=== PATIENT | male | born 1955 | race Caucasian/White ===

== ENCOUNTER 2017-04-03 12:38 | Inpatient (IN) | payer OTHER ==
[~2017-04-03] VITALS: Ht 188 cm; Wt 88.0 kg
[~2017-04-03 12:38] MED LIST: IBUP-232 PO
[2017-04-03 12:40] VITALS: BP 135/86; PULSE 98; RESP 20; TEMP 98; O2SAT 97
--- NOTE | 2017-04-03 13:02 | PD ---
Physical Exam Time Seen by Provider: 13:00 Narrative 61yo M c/o left leg cat bite since Monday w/ red streaking up his leg. [facility] and to come to ER. +vomiting yesterday. Denies fever. Patient seen in triage. Awaiting bed placement. VS reviewed. Data Data Last Documented VS Vital Signs Date Time Temp Pulse Resp B/P Pulse Ox O2 Delivery O2 Flow Rate FiO2 04/03/17 12:40 98.0 98 20 135/86 97 Room Air MDM Supervised Visit with SENDY: Anny Diaz Apr 03, 2017 13:02
[2017-04-03] MEDS ORDERED: GUAI400T8 PO (17:16)
[2017-04-03] MEDS ORDERED: NICO1PAT TD (17:16)
[2017-04-03] MEDS ORDERED: IPRAAER INH (17:16)
[2017-04-03] MEDS ORDERED: B-1250TA PO (17:16)
[2017-04-03] MEDS ORDERED: LEVE750T8 PO (17:16)
[2017-04-03] MEDS ORDERED: [UNRECOGNIZED DRUG - CODE] PO (17:16)
[2017-04-03] MEDS ORDERED: SODIUM CHLORIDE 0.9% FLUSH 10 ML FLUSH IVF PRN (17:45)
[2017-04-03] MEDS ORDERED: metroNIDAZOLE 500 MG INJ 100 ML IV ONE (17:45)
[2017-04-03] MEDS ORDERED: CIPROFLOXACIN 400 MG PREMIX 200 ML IV ONE (17:45)
--- NOTE | 2017-04-03 17:46 | PD ---
HPI Chief Complaint: Skin Problem Time Seen by Provider: 17:23 Travel History International Travel<30 days: No Contact w/Intl Traveler<30days: No Traveled to known affect area: No History of Present Illness HPI Patient is a 61-year-old male who presents to emergency room for evaluation of cellulitis. Reports that he was bitten by his cat on Monday on his left lower extremity, he has noticed increased redness to his left leg, reports that the redness goes up to his left groin. He denies any fevers, reports chills. Reports that he did go to the [place] today, was told to go to the emergency room for IV antibiotics and admission to the hospital for treatment of cellulitis due to cat bite. Patient reports that his tetanus is up-to-date, last tetanus was 2 years ago. PFSH Past Medical History Arthritis: Yes Blood Disorders: No Cancer: Yes (melanoma of the left ear/NOSE,FACE) Chemotherapy: No Diabetes: No Endocrine: No Glaucoma: No Headaches: Yes Hepatitis: Yes (c) Hiatal Hernia: No Hypertension: No Immune Disorder: No Psychiatric: No Radiation Therapy: No Sleep Apnea: Yes Thyroid Disease: No Past Surgical History Abdominal Surgery: Yes (appendectomy,) AICD: No Appendectomy: Yes Arteriovenous Shunt: No Ear Surgery: Yes Insulin Pump: No Joint Replacement: No Pacemaker: No Other Surgery: Yes (APPENDICITIS, LEFT SHOULDER, RECONSTRUCTED WRIST FUSED) Social History Alcohol Use: Yes Tobacco Use: Yes Substance Use: No Allergies-Medications (Allergen,Severity, Reaction): Coded Allergies: Penicillin (Verified Allergy, Severe, Hives, 04/03/17) Reported Meds & Prescriptions Reported Meds & Active Scripts Active Reported B-1 (Thiamine HCl) 250 Mg Tab 100 Mg PO DAILY Nicotine Patch (Nicotine) 1 Each Patch.td24 21 Mg TD DAILY Levetiracetam 750 Mg Tab 750 Mg PO BID Guaifenesin 400 Mg Tab 400 Mg PO BID B-12 (Cyanocobalamin (Vitamin B-12)) 1,000 Mcg Tablet 1 Tab PO DAILY Combivent Respimat Inh (Ipratropium-Albuterol Inh) 20-100 Mcfp/Act Aero 1 Puff INH BID Review of Systems General / Constitutional: No: Fever Eyes: No: Visual changes HENT: No: Headaches Cardiovascular: No: Chest Pain or Discomfort Respiratory: No: Shortness of Breath Gastrointestinal: No: Abdominal Pain Genitourinary: No: Dysuria Musculoskeletal: No: Pain Skin: Positive Other (cellulitis of left lower extremity), No Rash Neurologic: No: Weakness Psychiatric: No: Depression Endocrine: No: Polydipsia Hematologic/Lymphatic: No: Easy Bruising Physical Exam Narrative GENERAL: mild distress SKIN: Focused skin assessment warm/dry. patient with erythema and swelling from left ankle with streaking to left groin HEAD: Atraumatic. Normocephalic. EYES: Pupils equal and round. No scleral icterus. No injection or drainage. ENT: No nasal bleeding or discharge. Mucous membranes pink and moist. NECK: Trachea midline. No JVD. CARDIOVASCULAR: Regular rate and rhythm. No murmur appreciated. RESPIRATORY: No accessory muscle use. Clear to auscultation. Breath sounds equal bilaterally. GASTROINTESTINAL: Abdomen soft, non-tender, nondistended. Hepatic and splenic margins not palpable. MUSCULOSKELETAL: No obvious deformities. No clubbing. No cyanosis. No edema. NEUROLOGICAL: Awake and alert. No obvious cranial nerve deficits. Motor grossly within normal limits. Normal speech. PSYCHIATRIC: Appropriate mood and affect; insight and judgment normal. Data Data Last Documented VS Vital Signs Date Time Temp Pulse Resp B/P Pulse Ox O2 Delivery O2 Flow Rate FiO2 04/03/17 17:59 82 16 147/93 97 Room Air 04/03/17 12:40 98.0 Orders Basic Metabolic Panel (Bmp) (04/03/17 17:35) Complete Blood Count With Diff (04/03/17 17:35) Prothrombin Time / Inr (Pt) (04/03/17 17:35) Act Partial Throm Time (Ptt) (04/03/17 17:35) Iv Access Insert/Monitor (04/03/17 17:35) Sodium Chloride 0.9% Flush (Ns Flush) (04/03/17 17:45) Ciprofloxacin 400 Mg Premix (Cipro 400 M (04/03/17 17:45) Metronidazole 500 Mg Inj (Flagyl 500 Mg (04/03/17 17:45) Admit Order (Ed Use Only) (04/03/17 18:40) Labs Laboratory Tests Test 04/03/17 17:55 White Blood Count 12.7 TH/MM3 Red Blood Count 4.12 MIL/MM3 Hemoglobin 13.6 GM/DL Hematocrit 39.9 % Mean Corpuscular Volume 96.8 FL Mean Corpuscular Hemoglobin 33.1 PG Mean Corpuscular Hemoglobin 34.2 % Concent Red Cell Distribution Width 13.4 % Platelet Count 209 TH/MM3 Mean Platelet Volume 7.3 FL Neutrophils (%) (Auto) % Lymphocytes (%) (Auto) % Monocytes (%) (Auto) % Eosinophils (%) (Auto) % Basophils (%) (Auto) % Neutrophils # (Auto) TH/MM3 Lymphocytes # (Auto) TH/MM3 Monocytes # (Auto) TH/MM3 Eosinophils # (Auto) TH/MM3 Basophils # (Auto) TH/MM3 CBC Comment AUTO DIFF Hematology Comments Prothrombin Time 12.7 SEC Prothromb Time International 1.1 RATIO Ratio Activated Partial 29.8 SEC Thromboplast Time Sodium Level 132 MEQ/L Potassium Level 4.4 MEQ/L Chloride Level 97 MEQ/L Carbon Dioxide Level 26.5 MEQ/L Anion Gap 9 MEQ/L Blood Urea Nitrogen 6 MG/DL Creatinine 0.77 MG/DL Estimat Glomerular Filtration 102 ML/MIN Rate Random Glucose 82 MG/DL Calcium Level 9.2 MG/DL [facility] Medical Decision Making Medical Screen Exam Complete: Yes Emergency Medical Condition: Yes Interpretation(s) Vital Signs Date Time Temp Pulse Resp B/P Pulse Ox O2 Delivery O2 Flow Rate FiO2 04/03/17 17:59 82 16 147/93 97 Room Air 04/03/17 12:40 98.0 98 20 135/86 97 Room Air Differential Diagnosis Cellulitis due to cat bite Narrative Course 61-year-old male who presents to emergency room with complaints of cellulitis from cat. Patient reports that he was bit by his cat on Monday, reports that he noticed increased redness to his left lower extremity which has now progressed to redness up his leg and to his groin. Reports no fevers, c/o of chills. [facility]. Patient does have an allergy to penicillin, reports that he develops a rash and that his throat closes up on him. Patient given flagyl and cipro. tetanus is up to date case reviewed with dr. casey who accepts pt to service Diagnosis Primary Impression: Cellulitis Qualified Code: L03.116 - Cellulitis of left lower extremity Additional Impression: Cat bite Qualified Code: W55.01XA - Cat bite, initial encounter Admitting Information Admitting Physician Requests: Observation Phyllis Peter DO Apr 03, 2017 17:46
[2017-04-03 17:59] VITALS: BP 147/93; PULSE 82; RESP 16; O2SAT 97
[2017-04-03 18:05] LABS: HEMATOCRIT 39.9 % (39.0-51.0); MEAN CELL VOLUME 96.8 FL (80.0-100.0); MEAN CORPUSCULAR HEMOGLOBIN 33.1 PG (27.0-34.0); MEAN CORPUSCULAR HGB CONC 34.2 % (32.0-36.0); PLATELET COUNT 209 TH/MM3 (150-450); RED BLOOD COUNT 4.12 MIL/MM3 (4.50-5.90); RED CELL DISTRIBUTION WIDTH 13.4 % (11.6-17.2); WHITE BLOOD COUNT 12.7 TH/MM3 (4.0-11.0)
[2017-04-03 18:10] LABS: APTT (PATIENT) 29.8 SEC (24.3-30.1); INTERNATIONAL NORMALIZED RATIO 1.1 RATIO; PROTHROMBIN TIME - PATIENT 12.7 SEC (9.8-11.6)
[2017-04-03 18:15] LABS: HEMO FLAGS AUTO DIFF
[2017-04-03 18:36] LABS: BICARBONATE 26.5 MEQ/L (21.0-32.0); POTASSIUM 4.4 MEQ/L (3.5-5.1)
[2017-04-03] MEDS: SODIUM CHLOR 0.9% 1000 ML INJ 1,000 ML IV SCH (18:41)
[2017-04-03 18:57] LABS: BANDS 8 % (0-6); EOSINOPHILS 1 % (0-4); NEUTROPHIL # MANUAL DIFF 10.5 TH/MM3 (1.8-7.7); PLATELET ESTIMATE SMEAR NORMAL (NORMAL); PLATELET MORPHOLOGY NORMAL (NORMAL); POLYS (SEG NEUTROPHILS) 75 % (16-70); SCAN/DIFF FINAL DIFF MANUAL; WBC DIFF SAMPLE 100
[2017-04-03] MEDS: SODIUM CHLORIDE 0.9% FLUSH 10 ML FLUSH IV FLUSH SCH (20:10)
[2017-04-03] MEDS: levETIRAcetam 250 MG TAB PO SCH (21:00)
--- NOTE | 2017-04-03 23:59 | HHI.HP ---
[facility] Admission Diagnosis cellulitis - cat bite Diagnoses: Chief Complaint: cat scratch Travel History International Travel<30 Days: No Contact w/Intl Traveler <30 Da: No Traveled to Known Affected Are: No History of Present Illness History from patient, ER provider communication, and review of medical records. Patient reported that on Monday, he was turning around and accidentally stepped on his cats detail and the cat turned around and scratched him by accidents. He does not think that the cat bit him. He states his is claiming that the cat might have. He states this Is his home cat and is immunized for all the vaccinations including rabies, and feline leukemia exotropia. He denies any fever. He states he was having some mild pain in that leg and nothing was noticeable. However on Monday, yesterday morning, he woke up with some redness, swelling and streaking up his left lower extremity. He states he was not given any antibiotics as an outpatient. He went to his [place] doctor who sent him to the hospital. On review of systems, he did report of some nausea on Monday and some diarrhea on Monday. But it's spontaneously resolved. He also reports of shortness of breath but states that this has been going on for a long time because of his COPD. Nothing different from his baseline. Otherwise, he denies any recent fevers/nausea/vomiting/diarrhea/urinary burning or pain on urination. Denies any hematemesis/hematochezia/melena/hematuria. Review of Systems Except as stated in HPI: all other systems reviewed are Neg Past Family Social History Past Medical History copd hepatitis c - 15yrs ago, with interferon 11 months seizures- on meds - keppra- but then stated due to alcohol withdrawal seizures as well Past Surgical History left shoulder reconstruction nerve replacement brachial plexus sx in left shoulder appendectomy left wrist sx- wrist drop sx liver biopsy Allergies: Coded Allergies: Penicillin (Verified Allergy, Severe, Hives, 04/03/17) Family History mom at 81 yo - from severe depression dad at 81 yo from heart attack Social History drinks heavily, last drink was monday- 3 beers normally 10-12 beers a day smokes , but stated last day is today. a pack a day years ago, used to use cocaine Physical Exam Vital Signs Vital Signs Date Time Temp Pulse Resp B/P Pulse Ox O2 Delivery O2 Flow Rate FiO2 04/03/17 17:59 82 16 147/93 97 Room Air 04/03/17 12:40 98.0 98 20 135/86 97 Room Air Physical Exam GENERAL: This is a well-nourished, well-developed patient, in no apparent distress. SKIN: Left lower extremity erythema and cellulitis with streaking up to upper thighs HEAD: Atraumatic. Normocephalic. No temporal or scalp tenderness. EYES: No scleral icterus. No injection or drainage. ENT: Nose without bleeding, purulent drainage or septal hematoma. Airway patent. NECK: Trachea midline. No JVD CARDIOVASCULAR: Regular rate and rhythm without murmurs, gallops, or rubs. RESPIRATORY: Clear to auscultation. Breath sounds equal bilaterally. No wheezes , rales, or rhonchi. GASTROINTESTINAL: Abdomen soft, non-tender, nondistended.No guarding. MUSCULOSKELETAL: Extremities without clubbing, cyanosis, or edema.No calf tenderness. NEUROLOGICAL: Awake and alert.Motor and sensory grossly within normal limits Normal speech. Laboratory Laboratory Tests Test 04/03/17 17:55 White Blood Count 12.7 Red Blood Count 4.12 Hemoglobin 13.6 Hematocrit 39.9 Mean Corpuscular Volume 96.8 Mean Corpuscular Hemoglobin 33.1 Mean Corpuscular Hemoglobin 34.2 Concent Red Cell Distribution Width 13.4 Platelet Count 209 Mean Platelet Volume 7.3 Neutrophils (%) (Auto) Lymphocytes (%) (Auto) Monocytes (%) (Auto) Eosinophils (%) (Auto) Basophils (%) (Auto) Neutrophils # (Auto) Lymphocytes # (Auto) Monocytes # (Auto) Eosinophils # (Auto) Basophils # (Auto) CBC Comment AUTO DIFF Differential Total Cells 100 Counted Neutrophils % (Manual) 75 Band Neutrophils % 8 Lymphocytes % 12 Monocytes % 4 Eosinophils % 1 Neutrophils # (Manual) 10.5 Differential Comment FINAL DIFF MANUAL Platelet Estimate NORMAL Platelet Morphology Comment NORMAL Red Cell Morphology Comment NORMAL Hematology Comments Prothrombin Time 12.7 Prothromb Time International 1.1 Ratio Activated Partial 29.8 Thromboplast Time Sodium Level 132 Potassium Level 4.4 Chloride Level 97 Carbon Dioxide Level 26.5 Anion Gap 9 Blood Urea Nitrogen 6 Creatinine 0.77 Estimat Glomerular Filtration 102 Rate Random Glucose 82 Calcium Level 9.2 Result Diagram: 04/03/17175404/03/171754 Assessment and Plan Assessment and Plan Impression: Left lower extremity cellulitisfrom cat scratch copd hepatitis c - 15yrs ago, with interferon 11 months seizures- on meds - kera- but then stated due to alcohol withdrawal seizures as well Plan: Continue ciprofloxacin 400 mg IV every 12 hours. Flagyl 500 mg IV every 6 hours. Will monitor patient for clinically for improvement. Watch for alcohol withdrawal. CIWA protocol. Nebs when necessary for COPD. Resume home meds. DVT prophylaxiswith Lovenox. Discussed Condition With Patient, nursing staff Shayne Beckwith MD Apr 03, 2017 23:59
[2017-04-04] VITALS (7 sets, daily range): BP systolic 107–148; BP diastolic 73–88; PULSE 79–105; RESP 16–21; TEMP 96.3–100; O2SAT 95–99
[2017-04-04] MEDS ORDERED: RESP: ALBUTEROL 2.5 MG/IPRATROPIUM 0.5 MG NEB (PRN) NEB
[2017-04-04] MEDS ORDERED: LORazepam 1 MG TAB PO PRN ×2 (00:15→11:30)
[2017-04-04] MEDS ORDERED: LORazepam 2 MG TAB PO PRN ×2 (00:15→11:30)
[2017-04-04] MEDS ORDERED: LORazepam 2 MG/ML VIAL IV PUSH PRN ×8 (00:15→11:30)
[2017-04-04] MEDS ORDERED: FLUMAZENIL 0.5 MG/5 ML VIAL IV PUSH PRN ×2 (00:15→11:30)
[2017-04-04] MEDS: RESP: ALBUTEROL 2.5 MG/IPRATROPIUM 0.5 MG NEB (SCH) NEB ×2 (03:49→07:34)
[2017-04-04] MEDS: metroNIDAZOLE 500 MG INJ 100 ML IV SCH ×3 (04:06→21:25)
[2017-04-04] MEDS: SODIUM CHLOR 0.9% 1000 ML INJ 1,000 ML IV SCH ×2 (04:41→17:01)
[2017-04-04] MEDS: CIPROFLOXACIN 400 MG PREMIX 200 ML IV SCH ×2 (05:05→16:59)
[2017-04-04] MEDS: CYANOCOBALAMIN 1,000 MCG TAB PO SCH (08:15)
[2017-04-04] MEDS ORDERED: KETOROLAC TROMETHAMINE 30 MG/ML (IVP) VIAL IV PUSH PRN (08:15)
[2017-04-04] MEDS: NICOTINE 21 MG/24 HR PATCH T-DERMAL SCH (08:16)
[2017-04-04] MEDS: levETIRAcetam 250 MG TAB PO SCH ×2 (08:16→21:24)
[2017-04-04] MEDS: THIAMINE HCL 100 MG TAB PO SCH (08:16)
[2017-04-04] MEDS: ENOXAPARIN SODIUM 40 MG/0.4 ML SYRINGE SQ SCH (08:17)
[2017-04-04] MEDS: SODIUM CHLORIDE 0.9% FLUSH 10 ML FLUSH IV FLUSH SCH ×2 (08:18→21:23)
--- NOTE | 2017-04-04 08:28 | HHI.PR ---
Subjective Remarks Follow-up for left lower extremity cellulitis. Patient continues to complain of left lower extremity redness or his Possibly scratched or bitten him, he is not sure. He continues to have red streaking up his leg and swollen lymph nodes in his groin, but feels like the lymphangitic redness is a little bit improved and his antibiotics were started. He has some occasional burning pain in his left leg. His PCP has instructed him to taper off of 12 beers daily due to alcohol withdrawal seizures, currently at 10 daily. He takes ibuprofen for left shoulder pain. He is trying to stop smoking and requests a nicotine patch. Objective Vitals Vital Signs Date Time Temp Pulse Resp B/P Pulse Ox O2 Delivery O2 Flow Rate FiO2 04/04/17 07:30 98.0 79 16 108/75 97 04/04/17 04:53 98.8 96 18 107/73 95 04/04/17 00:00 100.0 105 20 148/82 95 04/03/17 17:59 82 16 147/93 97 Room Air 04/03/17 12:40 98.0 98 20 135/86 97 Room Air Result Diagram: 04/03/17175404/03/171754 Objective Remarks GENERAL: Well-developed well-nourished. In no acute distress. SKIN: Warm and dry. Left lower extremity as below with healing scratch and possible puncture wound. HEENT: Normocephalic. Pupils equal and round. Mucous membranes pink and moist. CARDIOVASCULAR: Regular rate and rhythm. No murmur appreciated. RESPIRATORY: No accessory muscle use. Clear to auscultation. Breath sounds equal bilaterally. GASTROINTESTINAL: Abdomen soft, non-tender, nondistended. Bowel sounds x4. MUSCULOSKELETAL: Above the left ankle there is erythema, edema. There is lymphangitic streaking up to the left groin where there are palpable lymph nodes. No clubbing or cyanosis. No edema. NEUROLOGICAL: Awake and alert. No focal neurological deficits. Moves upper and lower extremities spontaneously. Normal speech. PSYCHIATRIC: Appropriate mood and affect; insight and judgment normal. A/P Assessment and Plan 61-year-old male with a past medical history of alcohol withdrawal seizures, COPD, treated hepatitis C who [facility] a [facility] bite/scratch Left lower extremity cellulitis/sepsis: Patient unsure if from cat bite or cat scratch. Tachycardia and leukocytosis with mild bandemia. Afebrile. -Continue IV Cipro and Flagyl as patient is penicillin allergic -Add azithromycin -Consult ID -IVF -Elevated lower extremity -IV Toradol as needed for pain -Check repeat labs and blood cultures Alcohol abuse with alcohol withdrawal seizure history: Continue Keppra. CIWA protocol. Thiamine. Counseled on cessation. COPD/Tobacco abuse: Counseled on cessation. Continue albuterol MDI. Nicotine patch. DVT prophylaxis: Lovenox GI prophylaxis: Protonix Discharge Planning With sepsis criteria, will admit to inpatient. Willy Rodriguez Apr 04, 2017 08:28
[2017-04-04] MEDS ORDERED: AZITHROMYCIN 250 MG TAB PO SCH (09:00)
[2017-04-04] MEDS ORDERED: NICOTINE 21 MG TD SCH (09:00)
[2017-04-04] MEDS: PANTOPRAZOLE SOD 20 MG DELAYED RELEASE TAB PO SCH (09:08)
--- NOTE | 2017-04-04 12:20 | PD.ID.CON ---
History of Present Illness Service ID Consult Requested By Dr Beckwith Reason for Consult sp cat scratch/bite with LLE cellulitis Primary Care Physician [facility] Diagnoses: History of Present Illness 61 yo F presented yday co swelling and streaking up his left lower extremity since Monday, after he was scratched /? bitten by his owned cat on Monday He states its in door cat and immunized for all the vaccinations including rabies, and feline leukemia exotropia. He denies any fever. He states he was having some mild pain in that leg and nothing was noticeable. [facility]. he was not given any antibiotics as an outpatient. Pt was started on cipro and flagyl on admission Review of Systems Except as stated in HPI: all other systems reviewed are Neg Past Family Social History Allergies: Coded Allergies: Penicillin (Verified Allergy, Severe, Hives, 04/03/17) Past Medical History copd hepatitis c - 15yrs ago, with interferon 11 months seizures- on meds - keppra- but then stated due to alcohol withdrawal seizures as well Past Surgical History left shoulder reconstruction nerve replacement brachial plexus sx in left shoulder appendectomy left wrist sx- wrist drop sx liver biopsy Active Ordered Medications Medications where reviewed in EMR Antibiotics Include: azithro cipro flagyl Family History Non-Contributory to current problem Social History drinks heavily, last drink was monday- 3 beers normally 10-12 beers a day smokes , but stated last day is today. a pack a day years ago, used to use cocaine Physical Exam Vital Signs Vital Signs Date Time Temp Pulse Resp B/P Pulse Ox O2 Delivery O2 Flow Rate FiO2 04/04/17 08:57 96.3 88 18 128/79 99 04/04/17 07:30 98.0 79 16 108/75 97 04/04/17 04:53 98.8 96 18 107/73 95 04/04/17 00:00 100.0 105 20 148/82 95 04/03/17 17:59 82 16 147/93 97 Room Air 04/03/17 12:40 98.0 98 20 135/86 97 Room Air Physical Exam CONSTITUTIONAL/GENERAL: This is an adequately nourished patient, in no apparent distress. Tremors noted TUBES/LINES/DRAINS: SKIN: No jaundice, rashes, or lesions. Skin temperature appropriate. Not diaphoretic. HEAD: Atraumatic. Normocephalic. EYES: Pupils equal and round and reactive. Extraocular motions intact. No scleral icterus. No injection or drainage. Fundi not examined. ENT: Hearing grossly normal. Nose with well healed scar. L pinna sp partial resection . Oral mucosae without visible erythema, exudates, masses, or lesions. Poor dentition NECK: Trachea midline. Supple, nontender. CARDIOVASCULAR: Regular rate and rhythm without murmurs, gallops, or rubs. No JVD. Peripheral pulses symmetric. RESPIRATORY/CHEST: Symmetric, unlabored respirations. Clear to auscultation. Breath sounds equal bilaterally. No wheezes, rales, or rhonchi. GASTROINTESTINAL: Abdomen soft, non-tender, nondistended. No hepato-splenomegaly , or palpable masses. No guarding. Bowel sounds present. GENITOURINARY: Without palpable bladder distension. MUSCULOSKELETAL: Extremities without clubbing, cyanosis, or edema. STATUS LIOCALIS: small scabbed lesion on L lateral denton, erythema edema noted + cellulitis changes up to the knee., Residual lymphangitic streaks noted on the inner thigh LYMPHATICS: No palpable cervical or supraclavicular adenopathy. NEUROLOGICAL: Awake and alert. Motor and sensory grossly within normal limits. Follows commands. Clear speech. Moves all extremities. PSYCHIATRIC: No obvious anxiety/depression. no apparent hallucinations or other psychotic thought process. Laboratory Laboratory Tests Test 04/03/17 17:55 White Blood Count 12.7 Red Blood Count 4.12 Hemoglobin 13.6 Hematocrit 39.9 Mean Corpuscular Volume 96.8 Mean Corpuscular Hemoglobin 33.1 Mean Corpuscular Hemoglobin 34.2 Concent Red Cell Distribution Width 13.4 Platelet Count 209 Mean Platelet Volume 7.3 Neutrophils (%) (Auto) Lymphocytes (%) (Auto) Monocytes (%) (Auto) Eosinophils (%) (Auto) Basophils (%) (Auto) Neutrophils # (Auto) Lymphocytes # (Auto) Monocytes # (Auto) Eosinophils # (Auto) Basophils # (Auto) CBC Comment AUTO DIFF Differential Total Cells 100 Counted Neutrophils % (Manual) 75 Band Neutrophils % 8 Lymphocytes % 12 Monocytes % 4 Eosinophils % 1 Neutrophils # (Manual) 10.5 Differential Comment FINAL DIFF MANUAL Platelet Estimate NORMAL Platelet Morphology Comment NORMAL Red Cell Morphology Comment NORMAL Hematology Comments Prothrombin Time 12.7 Prothromb Time International 1.1 Ratio Activated Partial 29.8 Thromboplast Time Sodium Level 132 Potassium Level 4.4 Chloride Level 97 Carbon Dioxide Level 26.5 Anion Gap 9 Blood Urea Nitrogen 6 Creatinine 0.77 Estimat Glomerular Filtration 102 Rate Random Glucose 82 Calcium Level 9.2 Result Diagram: 04/03/17175404/03/171754 Assessment and Plan Assessment and Plan LLE cellulitis, lympahgitis following cat scratch/bite This is not a clinical scenario of cat scratch diseas, it more likley related to either pasteralle and strep, less likley staph infx High grade PCN allergy Fever, resolved Leukocytosis - improvedc High risk for ETOH withdrawl REC's: dc flagyl - dc azithro - add clinda for strep, staph coverage cont quinolones for gram neg coverage Pam Blanchard MD Apr 04, 2017 12:20
[2017-04-04 12:35] LABS: BASOPHIL % 0.3 % (0.0-2.0); EOSINOPHIL % 0.2 % (0.0-4.0); HEMATOCRIT 35.8 % (39.0-51.0); HEMO FLAGS DIFF FINAL; LYMPH % 12.1 % (9.0-44.0); LYMPHOCYTE # 1.1 TH/MM3 (1.0-4.8); MEAN CELL VOLUME 97.1 FL (80.0-100.0); MEAN CORPUSCULAR HEMOGLOBIN 33.2 PG (27.0-34.0); MEAN CORPUSCULAR HGB CONC 34.2 % (32.0-36.0); MONO % 8.2 % (0.0-8.0); NEUT % 79.2 % (16.0-70.0); PLATELET COUNT 213 TH/MM3 (150-450); RED BLOOD COUNT 3.69 MIL/MM3 (4.50-5.90); RED CELL DISTRIBUTION WIDTH 13.7 % (11.6-17.2); WHITE BLOOD COUNT 8.8 TH/MM3 (4.0-11.0)
[2017-04-04 12:49] LABS: ALT (GPT) 41 U/L (12-78); ANION GAP 8 MEQ/L (5-15); AST (GOT) 32 U/L (15-37); BICARBONATE 25.6 MEQ/L (21.0-32.0); BLOOD UREA NITROGEN 6 MG/DL (7-18); CHLORIDE 99 MEQ/L (98-107); GLOMERULAR FILTRATION RATE 114 ML/MIN (>89); POTASSIUM 3.5 MEQ/L (3.5-5.1); SODIUM (NA) 133 MEQ/L (136-145)
[2017-04-04 12:52] LABS: ALKALINE PHOSPHATASE 60 U/L (45-117); TOTAL BILIRUBIN ADULT 0.8 MG/DL (0.2-1.0)
[2017-04-04] MEDS: REMOVE OLD NICODERM (NICOTINE) PATCH T-DERMAL SCH (21:00)
[2017-04-04] MEDS: CLINDAMYCIN INJ 600 MG in SODIUM CHLORIDE 0.9% INJ 100 ML IV SCH (23:52)
[2017-04-05 00:15] VITALS: BP 139/87; PULSE 88; RESP 19; TEMP 97.5; O2SAT 96
[2017-04-05 04:20] VITALS: BP 120/89; PULSE 80; RESP 22; TEMP 98; O2SAT 95
[2017-04-05] MEDS: CLINDAMYCIN INJ 600 MG in SODIUM CHLORIDE 0.9% INJ 100 ML IV SCH ×2 (04:46→10:39)
[2017-04-05] MEDS: CIPROFLOXACIN 400 MG PREMIX 200 ML IV SCH (05:55)
[2017-04-05] MEDS: SODIUM CHLOR 0.9% 1000 ML INJ 1,000 ML IV SCH (05:56)
[2017-04-05] MEDS: SODIUM CHLORIDE 0.9% FLUSH 10 ML FLUSH IV FLUSH SCH (07:02)
[2017-04-05] MEDS: THIAMINE HCL 100 MG TAB PO SCH (07:39)
[2017-04-05] MEDS: levETIRAcetam 250 MG TAB PO SCH (07:39)
[2017-04-05] MEDS: CYANOCOBALAMIN 1,000 MCG TAB PO SCH (07:39)
[2017-04-05] MEDS: PANTOPRAZOLE SOD 20 MG DELAYED RELEASE TAB PO SCH (07:39)
[2017-04-05] MEDS: REMOVE OLD NICODERM (NICOTINE) PATCH T-DERMAL SCH (07:40)
[2017-04-05] MEDS: ENOXAPARIN SODIUM 40 MG/0.4 ML SYRINGE SQ SCH (07:40)
[2017-04-05] MEDS: NICOTINE 21 MG/24 HR PATCH T-DERMAL SCH (07:40)
[2017-04-05 07:48] VITALS: BP 131/81; PULSE 69; RESP 17; TEMP 95.7; O2SAT 96
[2017-04-05] MEDS ORDERED: CLIN1CAP6 PO ×2 (10:07→11:16)
[2017-04-05] MEDS ORDERED: LACTTAB8 PO (10:07)
--- NOTE | 2017-04-05 10:11 | HHI.DS ---
Discharge Summary Admission Date Apr 04, 2017 at 07:28 Discharge Date: Apr 05, 2017 Admitting Diagnosis cellulitis - cat bite (1) Cat bite ICD Code: W55.01XA Diagnosis: Principal (2) Cellulitis ICD Code: L03.90 Diagnosis: Principal Procedures None Brief History - From Admission History from patient, ER provider communication, and review of medical records. Patient reported that on Monday, he was turning around and accidentally stepped on his cats detail and the cat turned around and scratched him by accidents. He does not think that the cat bit him. He states his is claiming that the cat might have. He states this Is his home cat and is immunized for all the vaccinations including rabies, and feline leukemia exotropia. He denies any fever. He states he was having some mild pain in that leg and nothing was noticeable. However on Monday, yesterday morning, he woke up with some redness, swelling and streaking up his left lower extremity. He states he was not given any antibiotics as an outpatient. [facility]. On review of systems, he did report of some nausea on Monday and some diarrhea on Monday. But it's spontaneously resolved. He also reports of shortness of breath but states that this has been going on for a long time because of his COPD. Nothing different from his baseline. Otherwise, he denies any recent fevers/nausea/vomiting/diarrhea/urinary burning or pain on urination. Denies any hematemesis/hematochezia/melena/hematuria. CBC/BMP: 04/04/17 1202 04/04/17 1202 Significant Findings Laboratory Tests Test 04/03/17 04/04/17 17:55 12:02 White Blood Count 12.7 TH/MM3 (4.0-11.0) Red Blood Count 4.12 MIL/MM3 3.69 MIL/MM3 (4.50-5.90) (4.50-5.90) Neutrophils % (Manual) 75 % (16-70) Band Neutrophils % 8 % (0-6) Neutrophils # (Manual) 10.5 TH/MM3 (1.8-7.7) Prothrombin Time 12.7 SEC (9.8-11.6) Sodium Level 132 MEQ/L 133 MEQ/L (136-145) (136-145) Chloride Level 97 MEQ/L (98-107) Blood Urea Nitrogen 6 MG/DL (7-18) 6 MG/DL (7-18) Hemoglobin 12.2 GM/DL (13.0-17.0) Hematocrit 35.8 % (39.0-51.0) Neutrophils (%) (Auto) 79.2 % (16.0-70.0) Monocytes (%) (Auto) 8.2 % (0.0-8.0) Albumin 3.0 GM/DL (3.4-5.0) PE at Discharge GENERAL: Well-developed well-nourished. In no acute distress. SKIN: Warm and dry. Left lower extremity as below with healing scratch and possible puncture wound. HEENT: Normocephalic. Pupils equal and round. Mucous membranes pink and moist. CARDIOVASCULAR: Regular rate and rhythm. No murmur appreciated. RESPIRATORY: No accessory muscle use. Clear to auscultation. Breath sounds equal bilaterally. GASTROINTESTINAL: Abdomen soft, non-tender, nondistended. Bowel sounds x4. MUSCULOSKELETAL: Above the left ankle there is erythema, edema. There is lymphangitic streaking up to the left groin where there are palpable lymph nodes. No clubbing or cyanosis. No edema. NEUROLOGICAL: Awake and alert. No focal neurological deficits. Moves upper and lower extremities spontaneously. Normal speech. PSYCHIATRIC: Appropriate mood and affect; insight and judgment normal. Hospital Course Mr. Moreno is a 61-year-old male. He was admitted secondary to cellulitis which occurred related to cat bite. She also had sepsis at time of admission. On antibiotic treatments he has improved. There is recession of erythema and red streaking. No further oozing, wound has tried. No fevers. He is medically stable for discharge on oral clindamycin. Medically cleared for discharge today. She is also recommended to take a probiotic while he is on antibiotics. Pt Condition on Discharge: Stable Discharge Disposition: Discharge Home Discharge Time: <= 30 minutes Discharge Instructions DIET: Follow Instructions for: As Tolerated, No Restrictions Activities you can perform: Regular-No Restrictions Follow up Referrals: PCP Follow-up - 1 Week New Medications: Clindamycin (Clindamycin) 300 Mg Cap 300 MG PO TID Infection #21 Ref 0 CAP Lactobacillus Acidophilus (Lactobacillus Acidophilus) 1 Tab Tab 1 TAB PO TIDAC Nutritional Supplement #30 Ref 0 TAB Continued Medications: Cyanocobalamin (Vitamin B-12) (B-12) 1,000 Mcg Tablet 1 TAB PO DAILY Guaifenesin (Guaifenesin) 400 Mg Tab 400 MG PO BID Ipratropium-Albuterol Inh (Combivent Respimat Inh) 20-100 Alf/Act Aero 1 PUFF INH BID Asthma Management #1 Ref 0 INHALER Levetiracetam (Levetiracetam) 750 Mg Tab 750 MG PO BID Control Seizures #60 Ref 0 TAB Nicotine (Nicotine Patch) 1 Each Patch.td24 21 MG TD DAILY Thiamine (B-1) 250 Mg Tab 100 MG PO DAILY Nutritional Supplement Ref 0 TAB Barry Hewitt MD Apr 05, 2017 10:11
[2017-04-05] MEDS ORDERED: LEVA750T9 PO (11:15)
--- NOTE | 2017-04-05 11:15 | HHI.PR ---
Addendum to Inpatient Note Additional Information OK to discharge pt today on levaquine 750 mg daily and clindamycin 300 mg q 6 hrs for 10 more days Dw Pam Nicolas MD Apr 05, 2017 11:15
== END 2017-04-05 11:39 | disposition home or self-care (01) | DRG 872 ==
LOC: NEPE 12:38 → NEDA 18:42 → NEPGCP 19:34 → OBSVTOIN 04-04 07:28 → N05A 04-04 08:45
PROVIDERS: ADMIT Hospitalist; ATTEND Hospitalist
DX: A41.9 Sepsis, unspecified organism (principal); R56.9 Unspecified convulsions; L03.116 Cellulitis of left lower limb; F10.230 Alcohol dependence with withdrawal, uncomplicated; W55.03XA Scratched by cat, initial encounter; Z88.0 Allergy status to penicillin; J44.9 Chronic obstructive pulmonary disease, unspecified; F17.210 Nicotine dependence, cigarettes, uncomplicated; M25.512 Pain in left shoulder; Z86.19 Personal history of other infectious and parasitic diseases; Z85.820 Personal history of malignant melanoma of skin
CPT/HCPCS: 80048; 80053; 85007; 85025; 85027; 85610; 85730; 87040; 94640; 94664; 96365; G0378; J0744; J1650; J1885; J7030